=== PATIENT | female | born 1990 | race Caucasian/White ===

== ENCOUNTER 2016-11-11 15:06 | Emergency (ER) | payer BC ==
[2016-11-11] MEDS ORDERED: Diphtheria,Pertussis(Acell),Tetanus Vaccine 0.5 ML Syringe IM ONE (15:20)
--- NOTE | 2016-11-11 15:35 | EDM.PDOC ---
ED HPI GENERAL MEDICAL PROBLEM - General Chief Complaint: General Stated Complaint: FINGER GOT STUCK WITH NEEDLE Time Seen by Provider: 11/11/16 15:20 Source of Information: Reports: Patient History Limitations: Reports: No Limitations - History of Present Illness INITIAL COMMENTS - FREE TEXT/NARRATIVE: History of present illness: 26-year-old female comes in after purchasing a backpack at [employer] and pulling out the stuffing that was in it for display when she was poked in the hand by several Review of systems: As per history of present illness and below otherwise all systems reviewed and negative. Past medical history: As per history of present illness and as reviewed below otherwise noncontributory. Surgical history: As per history of present illness and as reviewed below otherwise noncontributory. Social history: No reported history of drug or alcohol abuse. Family history: As per history of present illness and as reviewed below otherwise noncontributory. Physical exam: HEENT: Atraumatic, normocephalic, pupils reactive, negative for conjunctival pallor or scleral icterus, mucous membranes moist, throat clear, neck supple, nontender, trachea midline. Lungs: Clear to auscultation, breath sounds equal bilaterally, chest nontender. Heart: S1S2, regular, negative for clicks, rubs, or JVD. Abdomen: Soft, nondistended, nontender. Negative for masses or hepatosplenomegaly. Negative for costovertebral tenderness. Pelvis: Stable nontender. Genitourinary: Deferred. Rectal: Deferred. Extremities: Atraumatic, negative for cords or calf pain. Neurovascular unremarkable. Neuro: Awake, alert, oriented. Cranial nerves II through XII unremarkable. Cerebellum unremarkable. Motor and sensory unremarkable throughout. Exam nonfocal. Diagnostics: [] Therapeutics: [] Impression: [] Plan: [] Definitive disposition and diagnosis as appropriate pending reevaluation and review of above. - Related Data Allergies Allergy/AdvReac Type Severity Reaction Status Date / Time No Known Allergies Allergy Verified 11/11/16 15:23 Home Meds: Home Meds . [No Known Home Meds] 11/11/16 [History] Past Medical History - Past Health History Medical/Surgical History: Denies Medical/Surgical History Genitourinary History: Reports: UTI, Recurrent - Infectious Disease History Infectious Disease History: Reports: Chicken Pox - Past Surgical History Female Surgical History: Reports: None Social & Family History - Family History Family Medical History: Noncontributory Cardiac: Reports: Hypertension Endocrine/Metabolic: Reports: Diabetes, type II Oncologic: Reports: Prostate - Tobacco Use Smoking Status *Q: Never Smoker Second Hand Smoke Exposure: No - Caffeine Use Caffeine Use: Reports: None - Recreational Drug Use Recreational Drug Use: No ED ROS GENERAL - Review of Systems Review Of Systems: See Below (History of present illness) ED EXAM, GENERAL - Physical Exam Exam: See Below (See history of present illness) Course - Vital Signs Last Recorded V/S: Last Vital Signs Temp 36.7 C 11/11/16 15:23 Pulse 92 11/11/16 15:23 Resp 16 11/11/16 15:23 BP 139/93 H 11/11/16 15:23 Pulse Ox 100 11/11/16 15:23 - Orders/Labs/Meds Orders: Active Orders 24 hr Category Date Time Status HEP B SURFACE AB,QNT [REF] Stat Lab 11/11/16 15:21 Ordered HEPATITIS C AB [REF] Stat Lab 11/11/16 15:21 Ordered HIV12 AG/AB 4TH GEN W/REFLEX [CHEM] Stat Lab 11/11/16 15:27 Received Departure - Departure Time of Disposition: 15:39 Disposition: Home, Self-Care 01 Condition: Good Clinical Impression: Needlestick injury of finger - Discharge Information Forms: ED Department Discharge Additional Instructions: The following information is given to patients seen in the emergency department who are being discharged to home. This information is to outline your options for follow-up care. We provide all patients seen in our emergency department with a follow-up referral. The need for follow-up, as well as the timing and circumstances, are variable depending upon the specifics of your emergency department visit. If you don't have a primary care physician on staff, we will provide you with a referral. We always advise you to contact your personal physician following an emergency department visit to inform them of the circumstance of the visit and for follow-up with them and/or the need for any referrals to a consulting specialist. The emergency department will also refer you to a specialist when appropriate. This referral assures that you have the opportunity for follow-up care with a specialist. All of these measure are taken in an effort to provide you with optimal care, which includes your follow-up. Under all circumstances we always encourage you to contact your private physician who remains a resource for coordinating your care. When calling for follow-up care, please make the office aware that this follow-up is from your recent emergency room visit. If for any reason you are refused follow-up, please contact the [facility] Emergency Department at and asked to speak to the emergency department charge nurse. It is imperative you follow-up with your primary care provider for repeat testing monitoring and guidance If your personal concern is significant it is imperative that she use condoms until all testing is finalized Return to ED as needed as discussed - My Orders Last 24 Hours: My Active Orders 11/11/16 15:21 HEP B SURFACE AB,QNT [REF] Stat HEPATITIS C AB [REF] Stat 11/11/16 15:27 HIV12 AG/AB 4TH GEN W/REFLEX [CHEM] Stat - Assessment/Plan Last 24 Hours: My Active Orders 11/11/16 15:21 HEP B SURFACE AB,QNT [REF] Stat HEPATITIS C AB [REF] Stat 11/11/16 15:27 HIV12 AG/AB 4TH GEN W/REFLEX [CHEM] Stat
[2016-11-11 15:37] VITALS: BP 139/93
== END 2016-11-11 16:01 | disposition home or self-care (01) ==
LOC: MW.ED 15:06
DX: S61.231A Puncture wound without foreign body of left index finger without damage to nail, initial encounter (principal); Z87.440 Personal history of urinary (tract) infections; W46.0XXA Contact with hypodermic needle, initial encounter; Y93.89 Activity, other specified; Y92.89 Other specified places as the place of occurrence of the external cause
CPT/HCPCS: 36415; 86706; 86803; 87389; 99282; 99283